=== PATIENT | male | born 1960 | race Caucasian/White ===

== ENCOUNTER → 2021-07-17 | Day surgery (SDC) | payer SELFPAY ==
[~2021-07-17] VITALS: Ht 182.9 cm; Wt 104.3 kg
[~2021-07-17] MED LIST: EUTHYROX125 MCG PO; IBUPROFEN800 M1 PO; PERCOCET 5-3251 EACH PO; ZYRTEC10 MG PO
[2021-07-17 07:35] LABS: HCT 43.5 % (42.0-52.0); HGB 15.2 g/dl (13.2-18.0); MCH 31.9 pg (25.0-31.0); MCHC 34.9 g/dL (32.0-36.0); MCV 91.2 fL (78.0-100.0); MPV 9.9 fL (6.0-9.5); RBC 4.77 M/uL (4.70-6.00); RDW 12.6 % (11.5-14.0); WBC 7.1 K/uL (4.0-10.5)
[2021-07-17 08:12] LABS: ALBUMIN 3.6 g/dL (3.4-5.0); BILIRUBIN - TOTAL 0.9 mg/dL (0.2-1.0); BUN/CREAT RATIO (CALC) 19.3 RATIO; CREATININE 0.83 mg/dL (0.67-1.17); GLOBULIN (CALCULATION) 3.6 g/dL; POTASSIUM 4.1 mmol/L (3.5-5.1); TOTAL PROTEIN 7.2 g/dL (6.4-8.2)
== END | disposition home or self-care (01) ==
LOC: FAS 06:19
PROVIDERS: Orthopaedic Surgery
DX: S83.232A Complex tear of medial meniscus, current injury, left knee, initial encounter (principal); M79.4 Hypertrophy of (infrapatellar) fat pad; M25.862 Other specified joint disorders, left knee; M17.12 Unilateral primary osteoarthritis, left knee; K21.9 Gastro-esophageal reflux disease without esophagitis; E03.9 Hypothyroidism, unspecified; X58.XXXA Exposure to other specified factors, initial encounter; Z79.891 Long term (current) use of opiate analgesic; Z79.1 Long term (current) use of non-steroidal anti-inflammatories (NSAID); Z79.890 Hormone replacement therapy; Z79.899 Other long term (current) drug therapy
CPT/HCPCS: 36415; 80053; 93005; J1100; J1170; J1885; J2250; J2405; J2704; J3010; J7120